=== PATIENT | male | born 1945 | race Caucasian/White ===

== ENCOUNTER → 2021-07-25 | Outpatient (CLI) | payer OTHER, MEDICARE | LOC: HYPER 07:39 | PROVIDERS: ATTEND Emergency Medicine | DX: L03.113 Cellulitis of right upper limb (principal); L57.0 Actinic keratosis; S51.801D Unspecified open wound of right forearm, subsequent encounter; M10.079 Idiopathic gout, unspecified ankle and foot; G60.9 Hereditary and idiopathic neuropathy, unspecified; E78.5 Hyperlipidemia, unspecified; D50.9 Iron deficiency anemia, unspecified; E66.01 Morbid (severe) obesity due to excess calories; M19.90 Unspecified osteoarthritis, unspecified site; M10.9 Gout, unspecified; I89.0 Lymphedema, not elsewhere classified; Z98.49 Cataract extraction status, unspecified eye; Z68.30 Body mass index [BMI] 30.0-30.9, adult; Z87.891 Personal history of nicotine dependence; Z96.698 Presence of other orthopedic joint implants; X58.XXXD Exposure to other specified factors, subsequent encounter ==